=== PATIENT | male | born 1960 | race African-American/Black ===

== ENCOUNTER 2018-08-01 21:58 | Inpatient (IN) | payer SELFPAY ==
[~2018-08-01] VITALS: Ht 188 cm; Wt 99.3 kg
[2018-08-01] MEDS ORDERED: ACETAMINOPHEN 325 MG TAB ONE (22:14)
[2018-08-01] MEDS ORDERED: SODIUM CHLORIDE 0.9% 1000ML 1,000 ML IV ONE ×2 (22:15→22:45)
[2018-08-01] MEDS ORDERED: ACETAMINOPHEN 325 MG TAB PO ONE (22:15)
[2018-08-01] MEDS ORDERED: SODIUM CHLORIDE 0.9% 1000ML 1,000 ML ONE (22:16)
[2018-08-01 22:27] LABS: BASOPHILS # (AUTO) 0.1 (0.0-0.1); BASOPHILS % 0.4 % (0.0-1.0); EOSINOPHILS # (AUTO) 0.1 (0.0-0.4); EOSINOPHILS % 0.4 % (0.0-6.0); HEMATOCRIT 38.4 % (38.2-49.6); HEMOGLOBIN 13.4 g/dL (14.0-18.0); LYMPHOCYTES % 8.2 % (18.0-39.1); MEAN CORPUSCULAR HEMOGLOBIN 29.5 pg (28-32); MEAN CORPUSCULAR HGB CONC 34.9 g/dL (31-35); MEAN CORPUSCULAR VOLUME 84.4 fL (81-99); MONOCYTES # (AUTO) 0.6 (0.2-0.8); MONOCYTES % 4.7 % (4.4-11.3); NEUTROPHILS # (AUTO) 10.7 (2.1-6.9); NEUTROPHILS % 85.7 % (38.7-80.0); PLATELET COUNT 168 x10e3/uL (140-360); RED BLOOD COUNT 4.55 x10e6/uL (4.3-5.7); RED CELL DISTRIBUTION WIDTH 12.2 % (11.7-14.4)
[2018-08-01 22:42] LABS: ALANINE AMINOTRANSFERASE 23 IU/L (0-55); ALBUMIN 3.4 g/dL (3.5-5.0); ALBUMIN/GLOBULIN RATIO 0.8 (0.8-2.0); ALKALINE PHOSPHATASE 68 IU/L (40-150); ANION GAP 13.4 mmol/L (8-16); BLOOD UREA NITROGEN 14 mg/dL (7-26); BUN/CREATININE RATIO 17 (6-25); CALCIUM 9.4 mg/dL (8.4-10.2); CARBON DIOXIDE 25 mmol/L (22-29); CHLORIDE 96 mmol/L (98-107); CREATININE, SERUM 0.84 mg/dL (0.72-1.25); EST GLOMERULAR FILTRATION RATE > 60 ML/MIN (60-); GLUCOSE 118 mg/dL (74-118); POTASSIUM 3.4 mmol/L (3.5-5.1); SODIUM 131 mmol/L (136-145)
[2018-08-01] MEDS ORDERED: ALBUTEROL/IPRATROPIUM 3 ML NEB NEB ONE (22:45)
[2018-08-01 22:50] LABS: STREPTOCOCCUS GRP A ANTIGEN POSITIVE (NEGATIVE)
[2018-08-01 22:55] LABS: INFLUENZAE A&B ANTIGEN (RAPID) NEGATIVE (NEGATIVE)
[2018-08-01] MEDS ORDERED: AZITHROMYCIN 500MG/NS 250 ML 250 ML IV SCH (23:00)
[2018-08-01] MEDS ORDERED: CEFTRIAXONE SOD 1 GM/NS 50 ML 50 ML IV SCH (23:00)
--- NOTE | 2018-08-01 23:00 | Diagnostic Imaging Report ---
EXAMINATION: CHEST SINGLE (PORTABLE) COMPARISON: None INDICATION: Fever, cough ^FEVER, COUGH ^[id number] ^2240 ^Y DISCUSSION: Frontal view of the chest obtained at 2244 hours. HEART AND MEDIASTINUM: The heart is enlarged. The ureter is tortuous LINES: None. LUNGS: Patchy airspace opacities in the right mid and lower lung zones. Pulmonary vasculature is prominent. PLEURA: Costophrenic angles are sharp. No pneumothorax BONES AND SOFT TISSUES: No focal osseous lesion. The soft tissues are normal. IMPRESSION: Cardiomegaly and vascular congestion. Airspace opacities in the right lung may represent pneumonia. Recommend correlation with PA and lateral chest x-ray if clinically feasible. Signed by: Dr. Sami Ortega MD on 08/01/2018 10:57 PM
--- OUTSIDE RECORDS SUMMARY | 2018-08-01 23:26 | XMS REPORT ---
Author Author [facility] Address Unknown Phone Unavailable Care Team Providers Care Knowledge Architect Name Role Phone Shazia NIELSEN Unavailable Unavailable Problems This patient has no known problems. Allergies, Adverse Reactions, Alerts This patient has no known allergies or adverse reactions. Medications This patient has no known medications. Results Test Description Test Time Test Comments Text Results Atomic Results Result Comments CHEST SINGLE (PORTABLE) 2018-08-01 22:55:00 [place] [id number] Patient Name: SAIMA JOYA II MR #: [id number] : 1960 Age/Sex: 58/M Req #: [id number] Adm Physician: Ordered by: IGGY NIELSEN MD Report #: [id number] Location: ER Room/Bed: Procedure: [id number] DX/CHEST SINGLE (PORTABLE) Exam Date: 08/01/18 Exam Time: 0 REPORT STATUS: Signed EXAMINATION: CHEST SINGLE (PORTABLE) COMPARISON: None INDICATION: Fever, cough FEVER, COUGH [id number] DISCUSSION: Frontal view of the chest obtained at 2244 hours. HEART AND MEDIASTINUM: The heart is enlarged. The ureter is tortuous LINES: None. LUNGS: Patchy airspace opacities in the right mid and lower lung zones. Pulmonary vasculature is prominent. PLEURA: Costophrenic angles are sharp. No pneumothorax BONES AND SOFT TISSUES: No focal osseous lesion. The soft tissues are normal. IMPRESSION: Cardiomegaly and vascular congestion. Airspace opacities in the right lung may represent pneumonia. Recommend correlation with PA and lateral chest x-ray if clinically feasible. Signed by: Dr. Jarrell Ortega MD on 08/01/2018 10:57 PM Dictated By: JARRELL ORTEGA MD 56 Transcribed By: ASYA on 08/01/182256 COPY TO: IGGY NIELSEN MD
[2018-08-01] MEDS ORDERED: ALBUTEROL SULF 0.083% NEB SOLN 3 ML NEB NEB SCH (23:30)
[2018-08-02] VITALS (16 sets, daily range): BP systolic 90–124; BP diastolic 60–75
[2018-08-02] MEDS: ALBUTEROL SULF 0.083% NEB SOLN 3 ML NEB NEB SCH ×6 (00:20→20:00)
[2018-08-02 00:34] LABS: CLARITY,URINE CLEAR (CLEAR); COLOR,URINE YELLOW (YELLOW); KETONES,URINE NEGATIVE (NEGATIVE); LEUKOCYTE ESTERASE ,URINE NEGATIVE (NEGATIVE); NITRITE,URINE NEGATIVE (NEGATIVE); PROTEIN,URINE DIPSTICK NEGATIVE (NEGATIVE); URINE UROBILINOGEN 1 mg/dL (0.2 - 1)
[2018-08-02 00:35] LABS: BILIRUBIN,URINE NEGATIVE (NEGATIVE)
[2018-08-02 00:37] LABS: BACTERIA,URINE FEW /HPF; EPITHELIAL CELLS,URINE FEW /LPF; WBC,URINE (MAN) 0-5 /HPF (0-5)
--- NOTE | 2018-08-02 01:28 | NUR ---
PATIENT RECEIVED FROM ER PER STRETCHER AT 0055; HE'S ALERT AND ORIENTED X3, LUNGS SOUND DIMINISHED ON THE POSTERIOR LOWER LOBES, OXYGEN SATURATION 100% ON 2L/NC. HE DENIES DIFFICULTY BREATHING, SKIN INTEGRITY INTACT AND PATIENT DENIES PAIN. ORIENTED TO SURROUNDINGS, CALL LIGHT AND URINAL WITHIN EASY REACH, PATIENT INSTRUCTED TO CALL FOR ASSISTANCE NEEDED.
[2018-08-02] MEDS: SODIUM CHLORIDE 0.9% 1000ML 1,000 ML IV SCH ×3 (02:03→18:39)
[2018-08-02 02:07] LABS: ABG PH 7.39 (7.31-7.41)
[2018-08-02 02:08] LABS: ABG HCO3 23 mmol/L (23-28); ABG PCO2 39 mmHg (41-51); ABG PO2 52 mmHg (80-105)
[2018-08-02] MEDS: IPRATROPIUM BROMIDE 0.02% 2.5 ML NEB NEB SCH ×4 (02:30→20:00)
--- NOTE | 2018-08-02 05:39 | NUR ---
PATIENT IS ASLEEP, HE'S EASY TO AROUSE. NO RESPIRATORY DISTRESS OBSERVED, HE DENIES PAIN. URINAL AND CALL LIGHT WITHIN EASY REACH.
[2018-08-02 06:24] LABS: BASOPHILS # (AUTO) 0.1 (0.0-0.1); BASOPHILS % 0.7 % (0.0-1.0); EOSINOPHILS # (AUTO) 0.1 (0.0-0.4); EOSINOPHILS % 0.8 % (0.0-6.0); HEMATOCRIT 35.1 % (38.2-49.6); HEMOGLOBIN 11.8 g/dL (14.0-18.0); LYMPHOCYTES % 8.8 % (18.0-39.1); MEAN CORPUSCULAR HEMOGLOBIN 29.1 pg (28-32); MEAN CORPUSCULAR HGB CONC 33.6 g/dL (31-35); MEAN CORPUSCULAR VOLUME 86.7 fL (81-99); MONOCYTES # (AUTO) 0.4 (0.2-0.8); NEUTROPHILS # (AUTO) 9.2 (2.1-6.9); NEUTROPHILS % 83.8 % (38.7-80.0); PLATELET COUNT 141 x10e3/uL (140-360); RED BLOOD COUNT 4.05 x10e6/uL (4.3-5.7); RED CELL DISTRIBUTION WIDTH 12.3 % (11.7-14.4)
[2018-08-02 06:48] LABS: ALANINE AMINOTRANSFERASE 18 IU/L (0-55); ALBUMIN 2.8 g/dL (3.5-5.0); ALBUMIN/GLOBULIN RATIO 0.7 (0.8-2.0); ALKALINE PHOSPHATASE 59 IU/L (40-150); ANION GAP 12.2 mmol/L (8-16); BLOOD UREA NITROGEN 15 mg/dL (7-26); BUN/CREATININE RATIO 20 (6-25); CALCIUM 8.6 mg/dL (8.4-10.2); CARBON DIOXIDE 23 mmol/L (22-29); CHLORIDE 101 mmol/L (98-107); CREATININE, SERUM 0.74 mg/dL (0.72-1.25); EST GLOMERULAR FILTRATION RATE > 60 ML/MIN (60-); GLUCOSE 116 mg/dL (74-118); POTASSIUM 3.2 mmol/L (3.5-5.1); SODIUM 133 mmol/L (136-145)
--- NOTE | 2018-08-02 07:05 | NUR ---
PATIENT IS AWAKE AND IN STABLE CONDITION WITH NO S/S OF RESPIRATORY DISTRESS. PATIENT DENIES ANY PAIN. IV FLUIDS INFUSING. 02 APPLIED AT 2L NC. CALL LIGHT IS WITHIN REACH OF PATIENT- PATIENT INSTRUCTED TO CALL FOR ASSISTANCE NEEDED.
[2018-08-02 07:23] LABS: BAND NEUTROPHILS % (MANUAL) 21 %; LYMPHOCYTES % (MANUAL) 5 % (19-48); MONOCYTES % (MANUAL) 2 % (3.4-9.0); NEUTROPHILS % (MANUAL) 72 % (40-74)
[2018-08-02 07:25] LABS: PLATELET ESTIMATE SLIGHTLY DECREASED; PLATELET MORPHOLOGY COMMENT NORMAL; RBC MORPHOLOGY COMMENT NORMAL
--- NOTE | 2018-08-02 09:03 | NUR ---
CALLED AND SPOKE WITH RESPIRATORY REGARDING PATIENT'S O2 SAT OF 86-89. RESPIRATORY INCREASED O2 FROM 2L TO 4L ALREADY THIS MORNING- PATIENT WILL BE PLACED ON A HIGH FLOW BY RESPIRATORY.
--- NOTE | 2018-08-02 09:11 | NUR ---
PATIENT PLACED ON 8L HIGH FLOW WITH O2 SAT OF 92-93. PATIENT IN STABLE CONDITION WITH NO S/S OF RESPIRATORY DISTRESS.
[2018-08-02] MEDS ORDERED: VANCOMYCIN 1GM/NS 250 ML 250 ML ONE (11:21)
[2018-08-02] MEDS ORDERED: DOXYCYCLINE HYCLATE TABLET 100 MG TAB ONE (11:21)
[2018-08-02] MEDS ORDERED: PIPER-TAZ 3.375 GM 50 ML ONE (11:21)
--- NOTE | 2018-08-02 11:23 | NUR ---
CASE MANAGEMENT INITIAL ASSESSMENT Space Planner to bedside to discuss plan of care with patient/family. CM/SW role and care transitions discussed. Anticipated discharge plan discussed along with duration of care. CM/SW discussed patients right to make decisions in care. CM/SW work hours given. VERIFIED DEMOGRAPHICS Patient lives: ALONE Admit/Transfer: ER Hospital/ER visits since last admit: DENIES ANY POA/Emergency contact: SON: JAREK LOPEZ [phone] Current/Previous Home Health: NONE PCP/Follow-up Care: NONE Current/Previous DME: NONE Medications (referring to index hospitalization or the first time you were in the hospital) N/A. NO RECENT HOSPITALIZATION. NO MEDICATION CHANGES. STATES UNDERSTANDS MEDS AND IS ABLE TO AFFORD THEM a. Were changes made in your medications when you were in the hospital on [date of index hospitalization]? Yes No Not sure Explain: Note: If no or not sure, please skip to question d b. Did you understand the changes? Yes No Explain: c. Were you able to obtain your new medications right away? Yes No n/a SNF only Explain: d. Were you able to take your medications like the doctor wanted you to? Yes No Explain: e. Did the hospital give you an accurate, easy to understand list of medications when you left? Yes No n/a SNF only Explain: Scale of 1-10 how comfortable does patient feel with disease management in outpatient settin Other Services: Employment Status: EMPLOYED Areas of Concerns: NO INSURANCE. GAVE HIM SELF PAY PACKET W/ EXPLANATION Referral Needs: NONE Education Needs: SELF PAY INFO. Mobile Pulse CARD. IMM/DEL RIO given and signed (if applicable): N/A Goal for discharge: TO RETURN HOME AND TO WORK CM/SW left business card at the bedside with contact information. Name and number was also written on the patients whiteboard. Patient verbalized understanding of discussion. CM will follow-up with ongoing discharge and transition of care needs.
[2018-08-02] MEDS: PIPER-TAZ 3.375 GM 50 ML IV SCH ×2 (11:32→18:14)
[2018-08-02] MEDS: DOXYCYCLINE HYCLATE TABLET 100 MG TAB PO SCH ×2 (11:38→15:54)
[2018-08-02] MEDS: VANCOMYCIN 1GM/NS 250 ML 250 ML IV SCH ×2 (12:39→22:27)
--- NOTE | 2018-08-02 12:50 | NUR ---
SPOKE WITH DR. TRIMBLE REGARDING PATIENT'S O2 SAT AND OXYGEN NEEDS; DR. TRIMBLE WILL SEE THE PATIENT.
--- NOTE | 2018-08-02 12:59 | NUR ---
SPOKE WITH DR. TRIMBLE AGAIN ON PATIENT CARE- NEW ORDER RECEIVED. DR. TRIMBLE ORDER FOR PATIENT TO TRANSFER TO ICU. CALLED AND SPOKE WITH DR. CHAKRABORTY- DR. CHAKRABORTY INFORMED OF THE TRANSFER TO ICU.
--- NOTE | 2018-08-02 13:17 | NUR ---
DR. TRIMBLE INFORMED ON THE UNIT OF PATIENT'S BLOOD CULTURE RESULT. CALLED AND SPOKE WITH DR. CHAKRABORTY REGARDING PATIENT'S POSITIVE BLOOD CULTURE RESULT- NO NEW ORDERS GIVEN.
--- NOTE | 2018-08-02 13:40 | Diagnostic Imaging Report ---
EXAM: CT Chest WITHOUT contrast 08/02/2018 10:20 AM INDICATION: ^SOB ^[id number] ^1225 COMPARISON: Chest radiograph 08/01/2018 TECHNIQUE: Chest was scanned utilizing a multidetector helical scanner from the lung apex through the level of the adrenal glands without administration of IV contrast. Absence of intravenous contrast decreases sensitivity for detection of lymphadenopathy and vascular pathology. Coronal and sagittal reformations were obtained. Routine protocol was performed. IV CONTRAST: None COMPLICATIONS: None RADIATION DOSE: Total DLP: 505.5 mGy*cm Estimated effective dose: (DLP x 0.015 x size factor) mSv CTDIvol has been reviewed. It is below the limits set by the Radiation Protocol Committee (RPC). FINDINGS: LINES/ TUBES: None. LUNGS AND AIRWAYS: Extensive bilateral lower lobes, right greater than left consolidation with air bronchogram. Bilateral pulmonary edema. Focal narrowing of the right mainstem bronchus by extrinsic compression of the adjacent consolidation. The remaining airways are patent and unremarkable. PLEURA: The pleural spaces are clear. HEART AND MEDIASTINUM: The thyroid gland is normal. Few nonspecific noncalcified subcentimeter mediastinal lymph nodes, likely reactive. Cardiomegaly. There is no pericardial effusion. The thoracic aorta is normal in size. MA pulmonary artery mildly enlarged measuring 3.4 cm in diameter. UPPER ABDOMEN: Unremarkable. BONES: The visualized bony thorax is within normal limits. SOFT TISSUES: Unremarkable. IMPRESSION: Extensive bilateral lower lobes pneumonia. Signed by: Dr. Vanessa Peralta M.D. on 08/02/2018 1:37 PM
[2018-08-02 14:47] LABS: ABG PH 7.38 (7.31-7.41)
[2018-08-02 14:48] LABS: ABG HCO3 23 mmol/L (23-28); ABG PCO2 39 mmHg (41-51); ABG PO2 69 mmHg (80-105)
--- NOTE | 2018-08-02 16:06 | NUR ---
TRANSFER REPORT GIVEN TO CREATIVE ASSISTANT AT 7709. PATIENT TRANSFERRED TO ICU ROOM 196 PER BED WITH 02 APPLIED AT 1600.
--- NOTE | 2018-08-02 16:52 | History and Physical ---
CHIEF COMPLAINT: Fever, cough, and acute hypoxia. HISTORY OF PRESENT ILLNESS: This is a 58 years old male, who works for waste management, came in with fever and cough associated with acute hypoxia. He required oxygen support approximately 4 L nasal cannula to keep his oxygen saturation above 90%. The patient is seems weak. He is having a productive cough. He had no medical history. The patient has been sick for the past few days and he used to be very strong at work and apparently, workplace send the patient home due to his symptoms. The patient is otherwise stable at this time. PAST MEDICAL HISTORY: Noncontributory. PAST SURGICAL HISTORY: None. SOCIAL HISTORY: Patient works for waste management of very active labor. Patient does not smoke or use alcohol. No recreational drugs. ALLERGIES: NO KNOWN ALLERGIES. HOME MEDICATIONS: None. REVIEW OF SYSTEMS: Increasing shortness of breath, coughing, productive cough with fever. PHYSICAL EXAMINATION: VITAL SIGNS: Temperature is 101.6, blood pressure 129/82, pulse rate 96, respiration is 22. GENERAL: The patient seems weak and diaphoretic, but he is not in any distress. HEENT: Normocephalic, atraumatic. Anicteric. NECK: Supple grossly. PULMONARY: Diminished breath sounds bilaterally. There is . Diminished right lung base more than the left. CARDIOVASCULAR: Tachycardia. ABDOMEN: Soft. EXTREMITIES: No cyanosis or edema. NEUROLOGIC: No gross focal deficit. LABORATORY DATA: WBC is 12.4, hemoglobin 13.4, hematocrit 38.4, and platelets is 168. Urinalysis 1+ blood, leukocyte esterase is negative. Group A Strep screen is positive. Influenza A and B negative. Chemistry; sodium is 131, potassium 3.4, chloride 96, bicarb 25, BUN is 14, creatinine 0.8, glucose is 118. Liver enzyme is negative. Chest x-ray: One view, showed cardiomegaly and vascular congestion. Airspace opacity in the right lung, may represent pneumonia. CT scan of the chest is pending. IMPRESSION: Community-acquired pneumonia with Strep pneumonia with acute hypoxia, associated with fever and productive cough. PLAN: Admit the patient to the hospital. He seemed diaphoretic. He required 4 L of nasal cannula. His lung examination is abnormal. I will put him on IV antibiotics, Zosyn and IV vancomycin for coverage of the Strep. We will place the patient on azithromycin orally. Nebulizer treatment, oxygen support. CT of the chest without contrast. Consultation with Dr. Thea Michelle. MD SHAYLA Monge/DEVEN /[id number]
--- NOTE | 2018-08-02 18:12 | NUR ---
patient transferred to ICU room 196 from med surg for respiratory distress. patient calm and following commands. no acute distress noted at this time on current oxygen settings. sats 100% rr 17. patient and family (at bedside) updated with plan of care and oriented to ICU and new room. both verbalized understanding. will continue to monitor patient respiratory status.
--- NOTE | 2018-08-02 19:18 | Consultation ---
DATE OF CONSULTATION: 08/02/2018 CHIEF COMPLAINT: Shortness of breath, cough, possible fever. HISTORY OF PRESENT ILLNESS: Mr. Allen is a 58-year-old male. He works in [employer], presented to the emergency room with worsening shortness of breath. Chest x-ray showing multilobar pneumonia. The patient was started on IV antibiotic and was admitted on the floor. However, today he is more tachypneic, short of breath. His oxygen requirement has increased to 11 L and he is saturating 88%. He had a CT of the chest done, which I have reviewed the images showing dense multilobar consolidation, right more than the left. Right middle lobe and lower lobe are involved. Left lingula and left lower lobes are involved as well. REVIEW OF SYSTEMS: GENERAL: Fever, chills, shortness of breath. GI: Denies any nausea or vomiting. CVS: Denies any chest pain. RESPIRATORY: Shortness of breath. The rest of the review of systems are negative except as in HPI. PAST MEDICAL HISTORY: None. PAST SURGICAL HISTORY: None. FAMILY AND SOCIAL HISTORY: He does not smoke. Does not drink. Works in [email or web address]. PHYSICAL EXAMINATION: VITAL SIGNS: Temperature 96.7, pulse of 94, blood pressure 119/74, respiratory rate of 24 to 26 per minute, O2 sat is 90% on 11 L of oxygen. HEENT: Head is atraumatic, normocephalic. NECK: Supple. CHEST: Markedly reduced air entry. No crackles. HEART: S1, S2 audible. ABDOMEN: Soft, nontender. EXTREMITIES: No clubbing, cyanosis, or edema. NEUROLOGIC: Awake and alert. LABORATORY DATA: White count of 12,000, now it is 11,000. Hemoglobin 11.8, platelets 141. Chemistry; sodium 133, potassium 3.2, chloride 101, BUN 15, and creatinine 0.74. ABG; pH of 7.4, pCO2 of 40, PO2 of 52 that was last night. This morning ABG is showing pH of 7.37, pCO2 of 39.2, and PO2 is 69. This is on 11 L of oxygen nasal cannula. ASSESSMENT: Mr. Allen is a 58-year-old male with multilobar pneumonia and dense consolidation. PLAN: Continue the patient on IV Zosyn and vancomycin. Blood cultures growing gram-positive cocci in pairs and chains. Transfer the patient to ICU. Spoke to the patient. August need intubation if the respiratory status gets worse. Vancomycin, doxycycline, and Zosyn has been ordered which will be continued. Nebulizer treatment as ordered. MD JIGNESH Parks/DEVEN /[id number]
[2018-08-03] VITALS (28 sets, daily range): BP systolic 96–150; BP diastolic 63–88
[2018-08-03] MEDS: IPRATROPIUM BROMIDE 0.02% 2.5 ML NEB NEB SCH ×4 (00:20→19:20)
[2018-08-03] MEDS: PIPER-TAZ 3.375 GM 50 ML IV SCH ×4 (00:43→17:24)
[2018-08-03] MEDS: ACETAMINOPHEN 325 MG TAB PO PRN ×2 (03:53→14:00)
[2018-08-03] MEDS: ALBUTEROL SULF 0.083% NEB SOLN 3 ML NEB NEB SCH ×5 (04:10→19:20)
[2018-08-03 05:59] LABS: ALANINE AMINOTRANSFERASE 16 IU/L (0-55); ALBUMIN 2.5 g/dL (3.5-5.0); ALBUMIN/GLOBULIN RATIO 0.6 (0.8-2.0); ALKALINE PHOSPHATASE 91 IU/L (40-150); ANION GAP 11.4 mmol/L (8-16); BLOOD UREA NITROGEN 14 mg/dL (7-26); BUN/CREATININE RATIO 18 (6-25); CALCIUM 8.9 mg/dL (8.4-10.2); CARBON DIOXIDE 26 mmol/L (22-29); CHLORIDE 102 mmol/L (98-107); CREATININE, SERUM 0.78 mg/dL (0.72-1.25); EST GLOMERULAR FILTRATION RATE > 60 ML/MIN (60-); GLUCOSE 110 mg/dL (74-118); POTASSIUM 3.4 mmol/L (3.5-5.1); SODIUM 136 mmol/L (136-145)
[2018-08-03] MEDS: SODIUM CHLORIDE 0.9% 1000ML 1,000 ML IV SCH (09:25)
[2018-08-03] MEDS: DOXYCYCLINE HYCLATE TABLET 100 MG TAB PO SCH (09:26)
[2018-08-03 15:20] LABS: HIV 1&2 AB SCREEN NON-REACTIVE (NONREACTIVE)
--- NOTE | 2018-08-03 18:17 | NUR ---
ID consult called today
[2018-08-03] MEDS: CEFTRIAXONE SOD 2 GM/NS 100 ML 100 ML IV SCH (19:56)
--- NOTE | 2018-08-03 20:40 | NUR ---
Left voicemail for Dr. Barksdale regarding patient's request for pain medicine. Awaiting return call.
[2018-08-04] VITALS (22 sets, daily range): BP systolic 118–155; BP diastolic 68–104
--- NOTE | 2018-08-04 00:32 | Consultation ---
DATE OF CONSULTATION: 08/03/2018 REASON FOR CONSULTATION: Pneumonia. HISTORY OF PRESENT ILLNESS: This patient, who is a 58-year-old male comes in with 2 weeks history of cough, not feeling well. Now, he is having some hemoptysis. The patient when he first came, he had cough and fever. In the emergency room, he was hypoxemic. He was given 4 L of oxygen. His O2 saturation came up to 90%. The patient is being admitted, he is currently in intensive care unit. He said he is feeling about the same, maybe a little bit better. PAST MEDICAL HISTORY: Denies. PAST SURGICAL HISTORY: Denies. SOCIAL HISTORY: The patient works in [employer]. No drug abuse or alcohol abuse. with one child. ALLERGIES: NKA. SOCIAL HISTORY: There is no smoking, drug abuse, or alcohol abuse. FAMILY HISTORY: Otherwise noncontributory. REVIEW OF SYSTEMS: Denies any headache or visual changes. He is just feeling bad. He does have cough, which is bloody. PHYSICAL EXAMINATION: GENERAL: He is currently alert, oriented, does not seem to be in acute distress. VITAL SIGNS: Stable. Currently afebrile. HEENT: Not icteric. Normocephalic. NECK: Supple. CHEST: Few crackles bilaterally. HEART: S1 and S2. No S3, S4, or murmur. ABDOMEN: Soft. Bowel sounds present. No tenderness. EXTREMITIES: No edema. SKIN: No rash. LAB DATA: Blood culture showed a bit hemolytic strep. White count on admission was 12.45, hemoglobin 13.4. Sodium 131, potassium 3.4, and creatinine 0.84. Liver enzymes within normal limit. Chest CT, extensive bilateral lower lobes pneumonia. The patient is currently on Zosyn. IMPRESSION: Sepsis on admission, pneumonia, and respiratory failure. Pathogen is alpha-hemolytic strep. We will change him to Rocephin 2 g q.12 hours. Obtain HIV. Recheck CBC. Recheck Chem panel. We will follow with you. Further recommendations to follow. MD KAPIL Tovar/DEVEN /[id number]
[2018-08-04] MEDS: IPRATROPIUM BROMIDE 0.02% 2.5 ML NEB NEB SCH ×4 (01:00→19:20)
[2018-08-04] MEDS: ALBUTEROL SULF 0.083% NEB SOLN 3 ML NEB NEB SCH ×4 (01:00→19:20)
[2018-08-04] MEDS: SODIUM CHLORIDE 0.9% 1000ML 1,000 ML IV SCH ×3 (03:32→19:01)
[2018-08-04 05:10] LABS: BASOPHILS % 0.4 % (0.0-1.0); EOSINOPHILS # (AUTO) 0.1 (0.0-0.4); EOSINOPHILS % 1.4 % (0.0-6.0); HEMATOCRIT 31.3 % (38.2-49.6); HEMOGLOBIN 10.5 g/dL (14.0-18.0); LYMPHOCYTES % 9.3 % (18.0-39.1); MEAN CORPUSCULAR HEMOGLOBIN 29.1 pg (28-32); MEAN CORPUSCULAR HGB CONC 33.5 g/dL (31-35); MEAN CORPUSCULAR VOLUME 86.7 fL (81-99); MONOCYTES # (AUTO) 0.4 (0.2-0.8); MONOCYTES % 4.1 % (4.4-11.3); NEUTROPHILS # (AUTO) 8.7 (2.1-6.9); NEUTROPHILS % 84.3 % (38.7-80.0); PLATELET COUNT 197 x10e3/uL (140-360); RED BLOOD COUNT 3.61 x10e6/uL (4.3-5.7); RED CELL DISTRIBUTION WIDTH 12.7 % (11.7-14.4)
[2018-08-04 05:26] LABS: ALANINE AMINOTRANSFERASE 15 IU/L (0-55); ALBUMIN 2.4 g/dL (3.5-5.0); ALBUMIN/GLOBULIN RATIO 0.6 (0.8-2.0); ALKALINE PHOSPHATASE 56 IU/L (40-150); ANION GAP 15.4 mmol/L (8-16); BLOOD UREA NITROGEN 11 mg/dL (7-26); BUN/CREATININE RATIO 17 (6-25); CALCIUM 8.9 mg/dL (8.4-10.2); CARBON DIOXIDE 23 mmol/L (22-29); CHLORIDE 102 mmol/L (98-107); CREATININE, SERUM 0.66 mg/dL (0.72-1.25); EST GLOMERULAR FILTRATION RATE > 60 ML/MIN (60-); GLUCOSE 98 mg/dL (74-118); POTASSIUM 3.4 mmol/L (3.5-5.1); SODIUM 137 mmol/L (136-145)
[2018-08-04 07:24] LABS: EOSINOPHILS % (MANUAL) 3 % (0-7); LYMPHOCYTES % (MANUAL) 7 % (19-48); MONOCYTES % (MANUAL) 3 % (3.4-9.0); NEUTROPHILS % (MANUAL) 87 % (40-74); PLATELET ESTIMATE ADEQUATE; PLATELET MORPHOLOGY COMMENT FEW EDTA CLUMPING; RBC MORPHOLOGY COMMENT NORMAL
[2018-08-04] MEDS: CEFTRIAXONE SOD 2 GM/NS 100 ML 100 ML IV SCH ×2 (08:15→20:08)
[2018-08-04] MEDS: ACETAMINOPHEN 325 MG TAB PO PRN (11:46)
--- NOTE | 2018-08-04 16:00 | NUR ---
GAVE PACKET OF INFORMATION WITH COMMUNITY RESOURCES FOR ASSISTANCE WITH LOW TO NO INCOME TO PATIENT. RESOURCES THAT PATIENT MAY BE ABLE TO FOLLOW UP UPON DISCHARGE. PT EDUCATED ON EACH RESOURCE AND UNDERSTANDING HOW TO FOLLOW UP TO SEE IF QUALIFIED FOR EACH RESOURCE.
--- NOTE | 2018-08-04 19:00 | NUR ---
Report received. Assumed care. Assessment done. See interventions. O2 per NC @ 3L. IV NS @ 50ml/hr.
--- NOTE | 2018-08-04 21:45 | NUR ---
Report called to Babs on MS 3.
--- NOTE | 2018-08-04 22:00 | NUR ---
Transferred per wheelchair to [facility]. Care to RN.
[2018-08-05] VITALS (8 sets, daily range): BP systolic 146–160; BP diastolic 70–93
[2018-08-05] MEDS: ACETAMINOPHEN/CODEINE 300MG - 30MG TAB PO PRN ×2 (00:02→23:41)
[2018-08-05] MEDS: IPRATROPIUM BROMIDE 0.02% 2.5 ML NEB NEB SCH ×4 (01:00→19:10)
[2018-08-05] MEDS: ALBUTEROL SULF 0.083% NEB SOLN 3 ML NEB NEB SCH ×4 (01:00→19:10)
--- NOTE | 2018-08-05 06:01 | NUR ---
PT RESTING .DENIES PAIN NO ACUTE DISTRESS NOTED .CONTINUE TO MONITOR
--- NOTE | 2018-08-05 07:23 | NUR ---
REPORT GIVEN TO THE ONCOMING NURSE
--- NOTE | 2018-08-05 07:30 | NUR ---
REC'D PT WITH HOB ELEVATED, 3 L/MIN NC, YELLOW NON-SKID SOCKS ON,NO S/S OF DISTRESS. BED IN LOWEST POSITION, SIDE RAILS UP X2, AND CALL SNYDER WITHIN REACH.
--- NOTE | 2018-08-05 07:30 | NUR ---
REC'D PT SITTING ON CHAIR, AT BEDSIDE. NO S/S OF DISTRESS. IV ANTIBIOTICS RUNNING. Addendum: 08/05/18 at 1312 by CARLOS FRANK RN WRONG PT.
[2018-08-05] MEDS: CEFTRIAXONE SOD 2 GM/NS 100 ML 100 ML IV SCH ×2 (08:08→19:49)
[2018-08-05] MEDS ORDERED: ONDANSETRON HCL INJ 2MG/ML 2ML 2 MG/ML VIAL IV PRN (09:15)
[2018-08-05] MEDS ORDERED: POTASSIUM CHLORIDE 20 MEQ TAB CR PO ONE (09:30)
[2018-08-05] MEDS ORDERED: LEVOFLOXACIN 500 MG TAB PO SCH (15:00)
--- NOTE | 2018-08-05 15:10 | NUR ---
PT EVALUATING PT
--- NOTE | 2018-08-05 15:15 | NUR ---
PT WENT FOR CXR. PT ON NASAL CANNULA RUNNING AT 3L/MIN. NO S/S OF DISTRESS.
[2018-08-05] MEDS ORDERED: ONDANSETRON HCL 4 MG ORAL DISINTEGRATING TAB PO PRN (15:30)
--- NOTE | 2018-08-05 15:40 | NUR ---
PT RETURNED FROM CXR. BACK ON ROOM NASAL CANNULA RUNNING AT 2L/MIN. SIDE RAILS UP X2, BED IN LOWEST POSITION, AND CALL SNYDER WITHIN REACH.
--- NOTE | 2018-08-05 16:07 | Diagnostic Imaging Report ---
EXAMINATION: PA and lateral views of the chest. COMPARISON: CT August 02, 2018 CLINICAL HISTORY: Fever, pneumonia DISCUSSION: Lines/tubes: None. Lungs: Decreased consolidations in the right and left lower lung. Pleura: No pleural effusion or pneumothorax. Heart and mediastinum: The cardiomediastinal silhouette is normal. Bones and soft tissues: No acute bony abnormalities. IMPRESSION: Decreased consolidations in the right and left lower lung Signed by: Dr. Art Burrell M.D. on 08/05/2018 4:03 PM
--- NOTE | 2018-08-05 18:14 | NUR ---
PT IS SITTING IN BED RESTING WITH EYES OPENED. SIDE RAILS UP X2, BED IN LOWEST POSITION, CALL SNYDER WITHIN REACH.
[2018-08-06] MEDS: IPRATROPIUM BROMIDE 0.02% 2.5 ML NEB NEB SCH ×4 (00:30→20:15)
[2018-08-06] MEDS: ALBUTEROL SULF 0.083% NEB SOLN 3 ML NEB NEB SCH ×4 (00:30→20:15)
[2018-08-06 04:00] VITALS: BP 161/82
[2018-08-06 07:23] VITALS: BP 168/76
[2018-08-06 08:00] VITALS: BP 168/79
[2018-08-06 08:39] LABS: BASOPHILS % 0.6 % (0.0-1.0); EOSINOPHILS # (AUTO) 0.1 (0.0-0.4); EOSINOPHILS % 1.8 % (0.0-6.0); HEMATOCRIT 34.6 % (38.2-49.6); HEMOGLOBIN 11.3 g/dL (14.0-18.0); LYMPHOCYTES # (AUTO) 1.1 (1.0-3.2); LYMPHOCYTES % 16.6 % (18.0-39.1); MEAN CORPUSCULAR HEMOGLOBIN 28.9 pg (28-32); MEAN CORPUSCULAR HGB CONC 32.7 g/dL (31-35); MEAN CORPUSCULAR VOLUME 88.5 fL (81-99); MONOCYTES # (AUTO) 0.7 (0.2-0.8); MONOCYTES % 10.4 % (4.4-11.3); NEUTROPHILS # (AUTO) 4.7 (2.1-6.9); NEUTROPHILS % 68.7 % (38.7-80.0); PLATELET COUNT 196 x10e3/uL (140-360); RED BLOOD COUNT 3.91 x10e6/uL (4.3-5.7); RED CELL DISTRIBUTION WIDTH 12.8 % (11.7-14.4)
[2018-08-06 09:02] LABS: ANION GAP 11.5 mmol/L (8-16); BLOOD UREA NITROGEN 9 mg/dL (7-26); BUN/CREATININE RATIO 14 (6-25); CALCIUM 9.2 mg/dL (8.4-10.2); CARBON DIOXIDE 28 mmol/L (22-29); CHLORIDE 98 mmol/L (98-107); CREATININE, SERUM 0.63 mg/dL (0.72-1.25); EST GLOMERULAR FILTRATION RATE > 60 ML/MIN (60-); GLUCOSE 93 mg/dL (74-118); POTASSIUM 3.5 mmol/L (3.5-5.1); SODIUM 134 mmol/L (136-145)
[2018-08-06] MEDS: CEFTRIAXONE SOD 2 GM/NS 100 ML 100 ML IV SCH ×2 (09:16→19:47)
[2018-08-06 11:22] VITALS: BP 153/80
[2018-08-06] MEDS ORDERED: PNEUMOC 13-VAL CONJ-DIP CRM/PF 0.5 ML DISP.SYRIN IM NR (12:00)
[2018-08-06 15:03] VITALS: BP 142/77
[2018-08-06 20:00] VITALS: BP 168/81
[2018-08-07] VITALS (8 sets, daily range): BP systolic 131–194; BP diastolic 74–90
[2018-08-07] MEDS: IPRATROPIUM BROMIDE 0.02% 2.5 ML NEB NEB SCH ×4 (01:00→20:06)
[2018-08-07] MEDS: ALBUTEROL SULF 0.083% NEB SOLN 3 ML NEB NEB SCH ×4 (01:00→20:06)
[2018-08-07 06:53] LABS: BASOPHILS # (AUTO) 0.1 (0.0-0.1); BASOPHILS % 1.1 % (0.0-1.0); EOSINOPHILS # (AUTO) 0.2 (0.0-0.4); EOSINOPHILS % 3.7 % (0.0-6.0); HEMATOCRIT 35.3 % (38.2-49.6); HEMOGLOBIN 11.7 g/dL (14.0-18.0); LYMPHOCYTES # (AUTO) 1.4 (1.0-3.2); LYMPHOCYTES % 25.1 % (18.0-39.1); MEAN CORPUSCULAR HGB CONC 33.1 g/dL (31-35); MEAN CORPUSCULAR VOLUME 87.4 fL (81-99); MONOCYTES # (AUTO) 0.7 (0.2-0.8); MONOCYTES % 12.1 % (4.4-11.3); NEUTROPHILS % 53.4 % (38.7-80.0); PLATELET COUNT 235 x10e3/uL (140-360); RED BLOOD COUNT 4.04 x10e6/uL (4.3-5.7); RED CELL DISTRIBUTION WIDTH 12.6 % (11.7-14.4)
[2018-08-07 06:56] LABS: ANION GAP 12.8 mmol/L (8-16); BLOOD UREA NITROGEN 11 mg/dL (7-26); BUN/CREATININE RATIO 17 (6-25); CALCIUM 9.4 mg/dL (8.4-10.2); CARBON DIOXIDE 29 mmol/L (22-29); CHLORIDE 96 mmol/L (98-107); CREATININE, SERUM 0.65 mg/dL (0.72-1.25); EST GLOMERULAR FILTRATION RATE > 60 ML/MIN (60-); GLUCOSE 98 mg/dL (74-118); POTASSIUM 3.8 mmol/L (3.5-5.1); SODIUM 134 mmol/L (136-145)
[2018-08-07 07:53] LABS: EOSINOPHILS % (MANUAL) 4 % (0-7); LYMPHOCYTES % (MANUAL) 27 % (19-48); MONOCYTES % (MANUAL) 11 % (3.4-9.0); NEUTROPHILS % (MANUAL) 57 % (40-74); PLATELET ESTIMATE ADEQUATE; PLATELET MORPHOLOGY COMMENT NORMAL; RBC MORPHOLOGY COMMENT NORMAL; TOXIC GRANULATION SLIGHT
[2018-08-07] MEDS: CEFTRIAXONE SOD 2 GM/NS 100 ML 100 ML IV SCH ×2 (08:44→20:00)
--- NOTE | 2018-08-07 10:07 | NUR ---
pt refused shower at this time, and also states "Im ok right now."
[2018-08-07] MEDS: ACETAMINOPHEN 325 MG TAB PO PRN (12:14)
--- NOTE | 2018-08-07 19:44 | NUR ---
RECEIVED PT IN BED AOX3 /DENIES PAIN .RESPIRATIONS ARE EVEN AND UNLABORED .CALL LIGHT WITH IN REACH .CONTINUE TO [id number]
--- NOTE | 2018-08-07 19:46 | NUR ---
RECEIVED PT IN BED AOX3 .RESPIRATIONS ARE EVEN AND UNLABORED .PT HAS PEG TUBE OSMOLITE 1.2 35 ML/HR .PT HAS THEODORE .DENIES PAIN .CALL LIGHT WITH IN REACH.CONTINUE TO MONITOR Addendum: 08/07/18 at 1949 by Chelly Espana RN WRONG PT
[2018-08-08] VITALS: BP 140/84
[2018-08-08 00:53] VITALS: BP 140/84
[2018-08-08] MEDS: IPRATROPIUM BROMIDE 0.02% 2.5 ML NEB NEB SCH ×2 (01:00→07:08)
[2018-08-08 04:00] VITALS: BP 149/80
--- NOTE | 2018-08-08 06:27 | NUR ---
PT RESTING DENIES PAIN .NO ACUTE DISTRESS NOTED .CALL LIGHT WITH IN REACH
[2018-08-08] MEDS: ALBUTEROL SULF 0.083% NEB SOLN 3 ML NEB NEB SCH ×2 (07:08)
--- NOTE | 2018-08-08 07:10 | NUR ---
REPORT GIVEN TO THE ON COMING NURSE
[2018-08-08 08:00] VITALS: BP 148/91
[2018-08-08] MEDS: CEFTRIAXONE SOD 2 GM/NS 100 ML 100 ML IV SCH (09:15)
[2018-08-08] MEDS ORDERED: LEVAQUIN500 MG PO (11:34)
[2018-08-08] MEDS ORDERED: TESSALON PERLE100 MG PO (11:35)
[2018-08-08] MEDS ORDERED: PROAIR HFA INH8.5 GM INH (11:37)
[2018-08-08 12:00] VITALS: BP 161/91
[2018-08-08 12:20] VITALS: BP 150/80
--- NOTE | 2018-08-09 05:23 | Discharge Summary ---
MAJOR SALES ASSOCIATE: Dr. Oscar Longoria. FINAL DIAGNOSES: 1. Streptococcus pneumonia sepsis associated with septic shock. 2. Bacteremia. 3. Multifocal pneumonia. SUMMARY: The patient is a 58-year-old male, very ill, came to the hospital with near respiratory failure. The patient had extensive bilateral lower lobe pneumonia. He also with fever. On admission, the patient with leukocytosis of 12.4000. The patient also with hypotensive require subsequent ICU admission because of fever and shock. The patient received multiple IV fluid boluses. He has also received first empiric antibiotics treatment and subsequently tapering down to Streptococcus pneumoniae infection. The patient had a long hospitalization. He did better. Today, he is breathing much better. The patient is stable. White cell count is normalizing. His WBC is 5.6, hemoglobin 11.7, hematocrit 35.3, platelets are 235. Chemistry panel, sodium is 134, potassium 3.8, chloride 96, bicarb 29, BUN 11, creatinine 0.6, glucose 98. The patient is stable, afebrile. He was able to take a deep breath without wheezing. The patient is stable discharged home. He had positive blood culture with Streptococcus pneumoniae. He was seen by Dr. Dorado for Infectious Disease. Recommended continue with Levaquin 5 mg daily for 14 days. Prescription already given. The patient will also receive cough medication as well. The patient received ProAir as needed. He will follow up with his family physician or with me in approximately one week for continued monitoring. The patient will not return to work until cleared by physician. MD SHAYLA Monge/DEVEN /[id number]
== END 2018-08-08 12:46 | disposition home or self-care (01) | DRG 871 ==
LOC: ER 21:58 → ERHOLD 23:24 → MED/SURG3 08-02 01:25 → ICU 08-02 15:59 → MED/SURG3 08-04 22:00
PROVIDERS: ADMIT Internal Medicine; ATTEND Internal Medicine
DX: A40.3 Sepsis due to Streptococcus pneumoniae (principal); R65.21 Severe sepsis with septic shock; J96.91 Respiratory failure, unspecified with hypoxia; J15.4 Pneumonia due to other streptococci; E87.1 Hypo-osmolality and hyponatremia; R04.2 Hemoptysis; Z82.49 Family history of ischemic heart disease and other diseases of the circulatory system; E87.6 Hypokalemia; E87.8 Other disorders of electrolyte and fluid balance, not elsewhere classified; D64.9 Anemia, unspecified; I25.10 Atherosclerotic heart disease of native coronary artery without angina pectoris
CPT/HCPCS: 36415; 36600; 71045; 71046; 71250; 80048; 80053; 80202; 81001; 82805; 83518; 83605; 85025; 87040; 87070; 87071; 87086; 87186; 87205; 87390; 87400; 87536; 93005; 93306; 94640; 94667; 99284; G0433; G0435; J0456; J0696; J2405; J2543; J3370; J7030